=== PATIENT | female | born 1975 | race African-American/Black ===

== ENCOUNTER 2021-01-07 14:34 | Emergency (ER) | payer OTHER ==
[~2021-01-07] VITALS: Ht 160 cm; Wt 86.2 kg
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
--- NOTE | 2021-01-07 16:18 | NUR ---
Urine collected and sent to lab for test.
--- NOTE | 2021-01-07 16:32 | NUR ---
nandini at bedside for x-ray.
[2021-01-07 18:29] VITALS: BP 145/77
--- NOTE | 2021-01-07 18:29 | NUR ---
Patient discharged to home in stable condition. Written and verbal after care instructions given. Patient verbalizes understanding of instruction.
== END 2021-01-07 18:29 | disposition home or self-care (01) ==
LOC: ER 14:39
DX: S60.413A Abrasion of left middle finger, initial encounter (principal); S60.512A Abrasion of left hand, initial encounter; F07.81 Postconcussional syndrome; V43.52XA Car driver injured in collision with other type car in traffic accident, initial encounter; Y93.89 Activity, other specified; Y92.413 State road as the place of occurrence of the external cause; Y99.8 Other external cause status
CPT/HCPCS: 70450-TC; 72125-TC; 73030-TC; 73080-TC; 73110; 73130-TC; 84703-TC